=== PATIENT | female | born 1945 | race Caucasian/White ===

== ENCOUNTER 2022-09-07 15:42 | Inpatient (IN) | payer MEDICARE, BC ==
[~2022-09-07] VITALS: Ht 157.5 cm; Wt 69.9 kg
[2022-09-07] MEDS ORDERED: LORA-258 PO (15:57)
[2022-09-07] MEDS ORDERED: THYR60TA2 PO (15:57)
[2022-09-07] MEDS ORDERED: METF-440 PO (15:57)
[2022-09-07] MEDS ORDERED: LORAZEPAM 0.5 MG TABLET ONE (16:20)
[2022-09-07 16:29] LABS: *BILIRUBIN,URIN NEGATIVE (NEGATIVE); *CLARITY,URINE CLEAR (CLEAR); *COLOR,URINE YELLOW (YELLOW); *KETONES,URINE TRACE (NEGATIVE); LEUKOCYTE ESTERASE ,URINE NEGATIVE (NEGATIVE); NITRITE, URINE NEGATIVE (NEGATIVE); UGLUCOSE NEGATIVE (NEGATIVE)
[2022-09-07] MEDS ORDERED: LORAZEPAM 0.5 MG TABLET PO ONE (16:30)
[2022-09-07 16:35] LABS: *BLOOD, URINE TRACE (NEGATIVE); BACTERIA,URINE FEW /HPF (NONE SEEN); WBC,URINE 0-3 /HPF (0-3)
[2022-09-07 16:36] LABS: SQUAMOUS EPITHELIAL CELL,UR FEW /HPF (NONE SEEN)
[2022-09-07 18:15] VITALS: BP 169/75
[2022-09-07] MEDS ORDERED: ZOLPIDEM 5 MG TABLET PO PRN (18:15)
[2022-09-07] MEDS ORDERED: MAG HYDROX/AL HYDROX/SIMETH 30 ML LIQUID UDC PO PRN (18:15)
[2022-09-07] MEDS ORDERED: MAGNESIUM HYDROXIDE 30 ML LIQUID UDC PO PRN (18:15)
[2022-09-07] MEDS ORDERED: BLOOD SUGAR DIAGNOSTIC 1 EACH STRIP VI ONE (18:30)
[2022-09-07] MEDS ORDERED: VENL37.591 PO (19:54)
[2022-09-07] MEDS ORDERED: QUET25TA PO (20:00)
[2022-09-07] MEDS ORDERED: ROSU5TAB PO (20:01)
[2022-09-07] MEDS ORDERED: LOSA25TA27 PO (20:03)
[2022-09-07] MEDS ORDERED: METO-356 PO (20:04)
[2022-09-07 20:50] VITALS: BP 137/67
[2022-09-08 07:30] VITALS: BP 149/67
[2022-09-08 07:45] LABS: HEMATOCRIT 39.8 % (31.2-41.9); MEAN CORPUSCULAR HEMOGLOBIN 26.5 uug (24.7-32.8); MEAN CORPUSCULAR VOLUME 81.4 fL (75.5-95.3); PLATELET COUNT (AUTO) 187 K/uL (179-408)
[2022-09-08 08:11] LABS: THYROID STIMULATING HORMONE 1.671 mIU/mL (0.358-3.740)
[2022-09-08] MEDS: ATORVASTATIN 10 MG TABLET PO SCH (09:29)
[2022-09-08] MEDS: METFORMIN HCL 500 MG TABLET PO SCH ×2 (09:29→17:50)
[2022-09-08] MEDS: LOSARTAN POTASSIUM 25 MG TABLET PO SCH (09:30)
[2022-09-08] MEDS: THYROID 60 MG TABLET PO SCH (09:34)
[2022-09-08] MEDS: METOPROLOL SUCCINATE XL 25 MG TAB.SR.24H PO SCH (09:35)
[2022-09-08] MEDS: LORAZEPAM 1 MG TABLET PO PRN (10:01)
[2022-09-08] MEDS: PAROXETINE HCL 10 MG TABLET PO SCH (10:53)
[2022-09-08] MEDS ORDERED: DEXTROSE 50% 50 ML DISP.SYRIN IV PRN (13:00)
[2022-09-08 16:00] VITALS: BP 106/46
[2022-09-08] MEDS: BLOOD SUGAR DIAGNOSTIC 1 EACH STRIP VI SCH ×2 (16:55→20:09)
[2022-09-08] MEDS: INSULIN REGULAR, HUMAN 300 UNIT/3 ML VIAL SQ PRN ×2 (17:50→20:10)
[2022-09-08] MEDS: REMEDY ESSENTIAL ZINC PASTE 113 GM TOP SCH (20:08)
[2022-09-08] MEDS: CLOTRIMAZOLE 1% CREAM 30 GM TUBE TOP SCH (20:44)
[2022-09-08 20:50] VITALS: BP 141/62
[2022-09-08] MEDS ORDERED: INSULIN GLARGINE,HUM 300 UNITS/3 ML CARTRIDGE SQ SCH (21:00)
[2022-09-09] MEDS: THYROID 60 MG TABLET PO SCH (06:10)
[2022-09-09] MEDS: BLOOD SUGAR DIAGNOSTIC 1 EACH STRIP VI SCH ×4 (06:36→20:17)
[2022-09-09 07:30] VITALS: BP 103/65
[2022-09-09] MEDS: METFORMIN HCL 500 MG TABLET PO SCH ×2 (08:54→18:00)
[2022-09-09] MEDS: ATORVASTATIN 10 MG TABLET PO SCH (08:58)
[2022-09-09] MEDS: LOSARTAN POTASSIUM 25 MG TABLET PO SCH (08:59)
[2022-09-09] MEDS: METOPROLOL SUCCINATE XL 25 MG TAB.SR.24H PO SCH (09:00)
[2022-09-09] MEDS: PAROXETINE HCL 10 MG TABLET PO SCH (09:01)
[2022-09-09] MEDS: CLOTRIMAZOLE 1% CREAM 30 GM TUBE TOP SCH ×2 (09:02→17:00)
[2022-09-09] MEDS: REMEDY ESSENTIAL ZINC PASTE 113 GM TOP SCH ×2 (09:02→20:17)
[2022-09-09] MEDS: LORAZEPAM 1 MG TABLET PO PRN ×2 (10:23→20:20)
[2022-09-09] MEDS: INSULIN REGULAR, HUMAN 300 UNIT/3 ML VIAL SQ PRN ×2 (12:29→20:19)
[2022-09-09] MEDS ORDERED: DIPHENOXYLATE HCL/ATROP SULF TABLET PO PRN (14:45)
[2022-09-09 16:00] VITALS: BP 112/67
[2022-09-09] MEDS: ACETAMINOPHEN 325 MG TABLET PO PRN (17:19)
[2022-09-09 20:08] VITALS: BP 165/83
[2022-09-09] MEDS: INSULIN GLARGINE,HUM 300 UNITS/3 ML CARTRIDGE SQ SCH (20:17)
[2022-09-10] MEDS: THYROID 60 MG TABLET PO SCH (06:13)
[2022-09-10] MEDS: BLOOD SUGAR DIAGNOSTIC 1 EACH STRIP VI SCH ×4 (06:32→20:40)
[2022-09-10 07:41] VITALS: BP 123/53
[2022-09-10] MEDS: METFORMIN HCL 500 MG TABLET PO SCH ×2 (08:39→17:18)
[2022-09-10] MEDS: LOSARTAN POTASSIUM 25 MG TABLET PO SCH (08:39)
[2022-09-10] MEDS: ATORVASTATIN 10 MG TABLET PO SCH (08:40)
[2022-09-10] MEDS: PAROXETINE HCL 10 MG TABLET PO SCH (08:40)
[2022-09-10] MEDS: METOPROLOL SUCCINATE XL 25 MG TAB.SR.24H PO SCH (08:41)
[2022-09-10] MEDS: FAMOTIDINE 20 MG TABLET PO SCH (08:46)
[2022-09-10] MEDS: CLOTRIMAZOLE 1% CREAM 30 GM TUBE TOP SCH ×2 (08:47→17:19)
[2022-09-10] MEDS: REMEDY ESSENTIAL ZINC PASTE 113 GM TOP SCH ×2 (08:51→21:02)
[2022-09-10] MEDS: INSULIN REGULAR, HUMAN 300 UNIT/3 ML VIAL SQ PRN ×2 (13:05→17:27)
[2022-09-10 16:36] VITALS: BP 119/69
[2022-09-10] MEDS: LORAZEPAM 1 MG TABLET PO PRN (17:56)
[2022-09-10 20:00] VITALS: BP 111/63
[2022-09-10] MEDS: INSULIN GLARGINE,HUM 300 UNITS/3 ML CARTRIDGE SQ SCH (20:41)
[2022-09-10 20:48] VITALS: BP 111/63
[2022-09-11] MEDS: THYROID 60 MG TABLET PO SCH (06:04)
[2022-09-11] MEDS: BLOOD SUGAR DIAGNOSTIC 1 EACH STRIP VI SCH ×2 (06:22→13:12)
[2022-09-11 07:57] VITALS: BP 103/46
[2022-09-11] MEDS: PAROXETINE HCL 10 MG TABLET PO SCH ×2 (09:00→11:09)
[2022-09-11] MEDS: METOPROLOL SUCCINATE XL 25 MG TAB.SR.24H PO SCH (09:00)
[2022-09-11] MEDS: LOSARTAN POTASSIUM 25 MG TABLET PO SCH (09:00)
[2022-09-11] MEDS: FAMOTIDINE 20 MG TABLET PO SCH (09:26)
[2022-09-11] MEDS: ATORVASTATIN 10 MG TABLET PO SCH (09:26)
[2022-09-11] MEDS: CLOTRIMAZOLE 1% CREAM 30 GM TUBE TOP SCH ×2 (09:26→18:01)
[2022-09-11] MEDS: REMEDY ESSENTIAL ZINC PASTE 113 GM TOP SCH ×2 (09:28→20:23)
[2022-09-11] MEDS: METFORMIN HCL 500 MG TABLET PO SCH ×2 (09:30→18:01)
[2022-09-11] MEDS: LORAZEPAM 1 MG TABLET PO PRN ×2 (11:11→20:22)
[2022-09-11] MEDS: INSULIN REGULAR, HUMAN 300 UNIT/3 ML VIAL SQ PRN (13:13)
[2022-09-11 16:37] VITALS: BP 111/67
[2022-09-11 20:03] VITALS: BP 149/83
[2022-09-11] MEDS: INSULIN GLARGINE,HUM 300 UNITS/3 ML CARTRIDGE SQ SCH (20:21)
[2022-09-12] MEDS: THYROID 60 MG TABLET PO SCH ×2 (06:23→20:57)
[2022-09-12 07:47] VITALS: BP 105/49
[2022-09-12] MEDS: ATORVASTATIN 10 MG TABLET PO SCH (08:52)
[2022-09-12] MEDS: PAROXETINE HCL 10 MG TABLET PO SCH (08:52)
[2022-09-12] MEDS: METFORMIN HCL 500 MG TABLET PO SCH ×2 (08:52→17:27)
[2022-09-12] MEDS: METOPROLOL SUCCINATE XL 25 MG TAB.SR.24H PO SCH (08:53)
[2022-09-12] MEDS: FAMOTIDINE 20 MG TABLET PO SCH (08:53)
[2022-09-12] MEDS: LOSARTAN POTASSIUM 25 MG TABLET PO SCH (08:54)
[2022-09-12] MEDS: CLOTRIMAZOLE 1% CREAM 30 GM TUBE TOP SCH ×2 (08:59→17:28)
[2022-09-12] MEDS: REMEDY ESSENTIAL ZINC PASTE 113 GM TOP SCH ×2 (09:00→21:05)
[2022-09-12 16:27] VITALS: BP 117/61
[2022-09-12] MEDS: NUTRISOURCE FIBER 4 GM PACKET PO SCH (17:28)
[2022-09-12 20:16] VITALS: BP 156/68
[2022-09-12] MEDS: ACETAMINOPHEN 325 MG TABLET PO PRN (20:56)
[2022-09-12] MEDS: INSULIN GLARGINE,HUM 300 UNITS/3 ML CARTRIDGE SQ SCH (20:57)
[2022-09-12] MEDS: LORAZEPAM 1 MG TABLET PO PRN (20:57)
[2022-09-13 07:30] VITALS: BP 131/61
[2022-09-13] MEDS: FAMOTIDINE 20 MG TABLET PO SCH (08:40)
[2022-09-13] MEDS: LOSARTAN POTASSIUM 25 MG TABLET PO SCH (08:40)
[2022-09-13] MEDS: METFORMIN HCL 500 MG TABLET PO SCH ×2 (08:40→17:14)
[2022-09-13] MEDS: ATORVASTATIN 10 MG TABLET PO SCH (08:40)
[2022-09-13] MEDS: METOPROLOL SUCCINATE XL 25 MG TAB.SR.24H PO SCH (08:41)
[2022-09-13] MEDS: PAROXETINE HCL 10 MG TABLET PO SCH (08:41)
[2022-09-13] MEDS: REMEDY ESSENTIAL ZINC PASTE 113 GM TOP SCH ×2 (08:42→21:04)
[2022-09-13] MEDS: NUTRISOURCE FIBER 4 GM PACKET PO SCH ×2 (08:45→17:14)
[2022-09-13] MEDS: CLOTRIMAZOLE 1% CREAM 30 GM TUBE TOP SCH ×2 (10:36→17:14)
[2022-09-13 16:00] VITALS: BP 106/42
[2022-09-13 20:22] VITALS: BP 108/60
[2022-09-13] MEDS: LORAZEPAM 1 MG TABLET PO PRN (21:02)
[2022-09-13] MEDS: INSULIN GLARGINE,HUM 300 UNITS/3 ML CARTRIDGE SQ SCH (21:02)
[2022-09-13] MEDS: ACETAMINOPHEN 325 MG TABLET PO PRN (21:03)
[2022-09-14] MEDS: THYROID 60 MG TABLET PO SCH (06:55)
[2022-09-14 07:30] VITALS: BP 122/43
[2022-09-14] MEDS: METFORMIN HCL 500 MG TABLET PO SCH ×2 (08:36→17:16)
[2022-09-14] MEDS: LOSARTAN POTASSIUM 25 MG TABLET PO SCH (08:37)
[2022-09-14] MEDS: PAROXETINE HCL 10 MG TABLET PO SCH (08:37)
[2022-09-14] MEDS: ATORVASTATIN 10 MG TABLET PO SCH (08:37)
[2022-09-14] MEDS: FAMOTIDINE 20 MG TABLET PO SCH (08:38)
[2022-09-14] MEDS: METOPROLOL SUCCINATE XL 25 MG TAB.SR.24H PO SCH (08:38)
[2022-09-14] MEDS: CLOTRIMAZOLE 1% CREAM 30 GM TUBE TOP SCH ×2 (08:40→16:45)
[2022-09-14] MEDS: REMEDY ESSENTIAL ZINC PASTE 113 GM TOP SCH ×2 (08:40→20:21)
[2022-09-14] MEDS: NUTRISOURCE FIBER 4 GM PACKET PO SCH ×2 (08:41→17:03)
[2022-09-14] MEDS ORDERED: DEXTROSE 50% 50 ML DISP.SYRIN IV PRN (12:00)
[2022-09-14 16:00] VITALS: BP 108/53
[2022-09-14] MEDS: BLOOD SUGAR DIAGNOSTIC 1 EACH STRIP VI SCH ×2 (16:40→20:21)
[2022-09-14 20:15] VITALS: BP 123/51
[2022-09-14] MEDS: INSULIN GLARGINE,HUM 300 UNITS/3 ML CARTRIDGE SQ SCH (20:24)
[2022-09-14] MEDS: INSULIN REGULAR, HUMAN 300 UNIT/3 ML VIAL SQ PRN (20:25)
[2022-09-15] MEDS: THYROID 60 MG TABLET PO SCH (06:19)
[2022-09-15] MEDS: BLOOD SUGAR DIAGNOSTIC 1 EACH STRIP VI SCH ×4 (06:19→20:07)
[2022-09-15 07:50] VITALS: BP 112/47
[2022-09-15] MEDS: FAMOTIDINE 20 MG TABLET PO SCH (08:37)
[2022-09-15] MEDS: LOSARTAN POTASSIUM 25 MG TABLET PO SCH (08:37)
[2022-09-15] MEDS: METFORMIN HCL 500 MG TABLET PO SCH ×2 (08:37→17:45)
[2022-09-15] MEDS: METOPROLOL SUCCINATE XL 25 MG TAB.SR.24H PO SCH (08:38)
[2022-09-15] MEDS: ATORVASTATIN 10 MG TABLET PO SCH (08:39)
[2022-09-15] MEDS: PAROXETINE HCL 10 MG TABLET PO SCH (08:39)
[2022-09-15] MEDS: NUTRISOURCE FIBER 4 GM PACKET PO SCH ×2 (08:39→16:54)
[2022-09-15] MEDS: REMEDY ESSENTIAL ZINC PASTE 113 GM TOP SCH ×2 (08:40→20:06)
[2022-09-15] MEDS: CLOTRIMAZOLE 1% CREAM 30 GM TUBE TOP SCH ×2 (08:40→16:56)
[2022-09-15 15:10] VITALS: BP 111/53
[2022-09-15] MEDS: INSULIN REGULAR, HUMAN 300 UNIT/3 ML VIAL SQ PRN ×2 (16:55→20:26)
[2022-09-15 20:03] VITALS: BP 116/55
[2022-09-15] MEDS: INSULIN GLARGINE,HUM 300 UNITS/3 ML CARTRIDGE SQ SCH (20:25)
[2022-09-16] MEDS: THYROID 60 MG TABLET PO SCH (06:21)
[2022-09-16] MEDS: BLOOD SUGAR DIAGNOSTIC 1 EACH STRIP VI SCH ×4 (06:31→20:13)
[2022-09-16 07:30] VITALS: BP 124/41
[2022-09-16] MEDS: ATORVASTATIN 10 MG TABLET PO SCH (09:05)
[2022-09-16] MEDS: METFORMIN HCL 500 MG TABLET PO SCH ×2 (09:05→16:53)
[2022-09-16] MEDS: FAMOTIDINE 20 MG TABLET PO SCH (09:06)
[2022-09-16] MEDS: LOSARTAN POTASSIUM 25 MG TABLET PO SCH (09:06)
[2022-09-16] MEDS: NUTRISOURCE FIBER 4 GM PACKET PO SCH ×2 (09:07→16:38)
[2022-09-16] MEDS: PAROXETINE HCL 10 MG TABLET PO SCH (09:09)
[2022-09-16] MEDS: CLOTRIMAZOLE 1% CREAM 30 GM TUBE TOP SCH ×2 (09:09→16:39)
[2022-09-16] MEDS: REMEDY ESSENTIAL ZINC PASTE 113 GM TOP SCH ×2 (09:09→20:13)
[2022-09-16] MEDS: METOPROLOL SUCCINATE XL 25 MG TAB.SR.24H PO SCH (09:11)
[2022-09-16 16:00] VITALS: BP 108/58
[2022-09-16 19:48] VITALS: BP 124/59
[2022-09-16] MEDS: INSULIN REGULAR, HUMAN 300 UNIT/3 ML VIAL SQ PRN (20:50)
[2022-09-16] MEDS: INSULIN GLARGINE,HUM 300 UNITS/3 ML CARTRIDGE SQ SCH (20:52)
[2022-09-17] MEDS: BLOOD SUGAR DIAGNOSTIC 1 EACH STRIP VI SCH ×4 (06:21→21:28)
[2022-09-17] MEDS: THYROID 60 MG TABLET PO SCH (06:22)
[2022-09-17 07:51] VITALS: BP 117/49
[2022-09-17] MEDS: METFORMIN HCL 500 MG TABLET PO SCH ×2 (08:38→17:47)
[2022-09-17] MEDS: ATORVASTATIN 10 MG TABLET PO SCH (08:40)
[2022-09-17] MEDS: FAMOTIDINE 20 MG TABLET PO SCH (08:40)
[2022-09-17] MEDS: PAROXETINE HCL 10 MG TABLET PO SCH (08:44)
[2022-09-17] MEDS: CLOTRIMAZOLE 1% CREAM 30 GM TUBE TOP SCH ×2 (08:44→16:42)
[2022-09-17] MEDS: REMEDY ESSENTIAL ZINC PASTE 113 GM TOP SCH ×2 (08:48→21:27)
[2022-09-17] MEDS: LOSARTAN POTASSIUM 25 MG TABLET PO SCH (09:00)
[2022-09-17] MEDS: METOPROLOL SUCCINATE XL 25 MG TAB.SR.24H PO SCH (09:00)
[2022-09-17] MEDS: NUTRISOURCE FIBER 4 GM PACKET PO SCH ×2 (09:03→17:41)
[2022-09-17 16:13] VITALS: BP 104/50
[2022-09-17 20:00] VITALS: BP 108/44
[2022-09-17] MEDS: LORAZEPAM 1 MG TABLET PO PRN (21:26)
[2022-09-17] MEDS: INSULIN GLARGINE,HUM 300 UNITS/3 ML CARTRIDGE SQ SCH (21:28)
[2022-09-18] MEDS: THYROID 60 MG TABLET PO SCH (06:20)
[2022-09-18] MEDS: BLOOD SUGAR DIAGNOSTIC 1 EACH STRIP VI SCH ×4 (06:55→21:00)
[2022-09-18 08:15] VITALS: BP 97/42
[2022-09-18] MEDS: FAMOTIDINE 20 MG TABLET PO SCH (08:26)
[2022-09-18] MEDS: METFORMIN HCL 500 MG TABLET PO SCH ×2 (08:26→17:01)
[2022-09-18] MEDS: ATORVASTATIN 10 MG TABLET PO SCH (08:26)
[2022-09-18] MEDS: PAROXETINE HCL 10 MG TABLET PO SCH (08:26)
[2022-09-18] MEDS: NUTRISOURCE FIBER 4 GM PACKET PO SCH ×2 (08:27→17:02)
[2022-09-18] MEDS: LOSARTAN POTASSIUM 25 MG TABLET PO SCH (08:27)
[2022-09-18] MEDS: METOPROLOL SUCCINATE XL 25 MG TAB.SR.24H PO SCH (08:27)
[2022-09-18] MEDS: REMEDY ESSENTIAL ZINC PASTE 113 GM TOP SCH ×2 (08:29→22:08)
[2022-09-18] MEDS: CLOTRIMAZOLE 1% CREAM 30 GM TUBE TOP SCH ×2 (08:30→17:01)
[2022-09-18 16:03] VITALS: BP 107/51
[2022-09-18 19:46] VITALS: BP 101/74
[2022-09-18] MEDS: LORAZEPAM 1 MG TABLET PO PRN (21:52)
[2022-09-18] MEDS: INSULIN GLARGINE,HUM 300 UNITS/3 ML CARTRIDGE SQ SCH (22:07)
[2022-09-18] MEDS: INSULIN REGULAR, HUMAN 300 UNIT/3 ML VIAL SQ PRN (22:08)
[2022-09-19] MEDS: BLOOD SUGAR DIAGNOSTIC 1 EACH STRIP VI SCH ×4 (06:29→21:36)
[2022-09-19] MEDS: THYROID 60 MG TABLET PO SCH (06:34)
[2022-09-19] MEDS: METFORMIN HCL 500 MG TABLET PO SCH ×2 (08:25→16:39)
[2022-09-19] MEDS: ATORVASTATIN 10 MG TABLET PO SCH (08:27)
[2022-09-19] MEDS: FAMOTIDINE 20 MG TABLET PO SCH (08:28)
[2022-09-19] MEDS: LOSARTAN POTASSIUM 25 MG TABLET PO SCH (08:30)
[2022-09-19] MEDS: CLOTRIMAZOLE 1% CREAM 30 GM TUBE TOP SCH ×2 (08:41→16:39)
[2022-09-19] MEDS: METOPROLOL SUCCINATE XL 25 MG TAB.SR.24H PO SCH (08:42)
[2022-09-19 08:45] VITALS: BP 136/56
[2022-09-19] MEDS: REMEDY ESSENTIAL ZINC PASTE 113 GM TOP SCH ×2 (08:46→21:35)
[2022-09-19] MEDS: NUTRISOURCE FIBER 4 GM PACKET PO SCH ×2 (08:47→16:38)
[2022-09-19] MEDS ORDERED: PAROXETINE HCL 10 MG TABLET PO SCH (09:00)
[2022-09-19] MEDS: PAROXETINE HCL 10 MG TABLET PO SCH (09:12)
[2022-09-19] MEDS: INSULIN REGULAR, HUMAN 300 UNIT/3 ML VIAL SQ PRN ×2 (16:37→21:31)
[2022-09-19 16:40] VITALS: BP 94/44
[2022-09-19 20:05] VITALS: BP 112/43
[2022-09-19] MEDS: INSULIN GLARGINE,HUM 300 UNITS/3 ML CARTRIDGE SQ SCH (21:31)
[2022-09-20] MEDS: THYROID 60 MG TABLET PO SCH (06:05)
[2022-09-20] MEDS: BLOOD SUGAR DIAGNOSTIC 1 EACH STRIP VI SCH ×4 (06:14→20:56)
[2022-09-20 08:10] VITALS: BP 104/63
[2022-09-20] MEDS: PAROXETINE HCL 10 MG TABLET PO SCH (08:37)
[2022-09-20] MEDS: ATORVASTATIN 10 MG TABLET PO SCH (08:37)
[2022-09-20] MEDS: METFORMIN HCL 500 MG TABLET PO SCH ×2 (08:37→17:15)
[2022-09-20] MEDS: FAMOTIDINE 20 MG TABLET PO SCH (08:38)
[2022-09-20] MEDS: NUTRISOURCE FIBER 4 GM PACKET PO SCH ×2 (08:39→16:44)
[2022-09-20] MEDS: LOSARTAN POTASSIUM 25 MG TABLET PO SCH (08:39)
[2022-09-20] MEDS: METOPROLOL SUCCINATE XL 25 MG TAB.SR.24H PO SCH (08:40)
[2022-09-20] MEDS: CLOTRIMAZOLE 1% CREAM 30 GM TUBE TOP SCH ×2 (08:40→16:44)
[2022-09-20] MEDS: REMEDY ESSENTIAL ZINC PASTE 113 GM TOP SCH ×2 (08:41→21:45)
[2022-09-20 15:57] VITALS: BP 112/50
[2022-09-20] MEDS: INSULIN REGULAR, HUMAN 300 UNIT/3 ML VIAL SQ PRN (16:55)
[2022-09-20 19:46] VITALS: BP 107/76
[2022-09-20] MEDS: LORAZEPAM 1 MG TABLET PO PRN (20:41)
[2022-09-20] MEDS: INSULIN GLARGINE,HUM 300 UNITS/3 ML CARTRIDGE SQ SCH (20:53)
[2022-09-21] MEDS: BLOOD SUGAR DIAGNOSTIC 1 EACH STRIP VI SCH ×2 (06:34→11:30)
[2022-09-21] MEDS: THYROID 60 MG TABLET PO SCH (06:34)
[2022-09-21 07:30] VITALS: BP 105/35
[2022-09-21] MEDS: METFORMIN HCL 500 MG TABLET PO SCH (08:34)
[2022-09-21] MEDS: FAMOTIDINE 20 MG TABLET PO SCH (08:34)
[2022-09-21] MEDS: LOSARTAN POTASSIUM 25 MG TABLET PO SCH (08:35)
[2022-09-21 08:38] VITALS: BP 105/55
[2022-09-21] MEDS: CLOTRIMAZOLE 1% CREAM 30 GM TUBE TOP SCH (08:38)
[2022-09-21] MEDS: METOPROLOL SUCCINATE XL 25 MG TAB.SR.24H PO SCH (08:38)
[2022-09-21] MEDS: REMEDY ESSENTIAL ZINC PASTE 113 GM TOP SCH (08:39)
[2022-09-21] MEDS: PAROXETINE HCL 10 MG TABLET PO SCH (08:41)
[2022-09-21] MEDS: NUTRISOURCE FIBER 4 GM PACKET PO SCH (08:41)
[2022-09-21] MEDS: ATORVASTATIN 10 MG TABLET PO SCH (08:42)
== END 2022-09-21 11:15 | disposition home or self-care (01) | DRG 885 ==
LOC: ER 15:42 → GPS 17:43
PROVIDERS: ADMIT Psychiatry & Neurology Psychiatry; ATTEND Nurse Practitioner Acute Care
DX: F33.2 Major depressive disorder, recurrent severe without psychotic features (principal); E11.65 Type 2 diabetes mellitus with hyperglycemia; R45.851 Suicidal ideations; F41.0 Panic disorder [episodic paroxysmal anxiety]; F41.1 Generalized anxiety disorder; E78.5 Hyperlipidemia, unspecified; I10 Essential (primary) hypertension; E03.9 Hypothyroidism, unspecified; Z79.84 Long term (current) use of oral hypoglycemic drugs; Z79.890 Hormone replacement therapy; Z79.899 Other long term (current) drug therapy
CPT/HCPCS: 36415; 84443; 85025; 93005; A4663; J1815